=== PATIENT | male | born 1955 | race African-American/Black ===

== ENCOUNTER 2019-11-27 20:26 | Emergency (ER) | payer MEDICAID ==
[~2019-11-27] VITALS: Ht 180.3 cm; Wt 120.0 kg
[2019-11-27 23:18] VITALS: BP 135/74
== END 2019-11-27 23:19 | disposition home or self-care (01) ==
LOC: ER 20:26
DX: J06.9 Acute upper respiratory infection, unspecified (principal); I10 Essential (primary) hypertension; E11.9 Type 2 diabetes mellitus without complications
CPT/HCPCS: 99283